=== PATIENT | male | born 1955 | race Caucasian/White ===

== ENCOUNTER 2021-10-16 10:53 | Emergency (ER) | payer MEDICARE, OTHER ==
[~2021-10-16] VITALS: Ht 175 cm; Wt 88.0 kg
[~2021-10-16 10:53] MED LIST: ATR20T PO; KETO10TA77 PO; OXYC-190 PO; OXYC1TAB16 PO
[2021-10-16] MEDS ORDERED: LEVO50TA6 (11:08)
[2021-10-16] MEDS ORDERED: TETANUS,DIPTH,PERTUSS P/F (BOOSTRIX) 0.5 ML VIAL IM ONE (11:15)
--- NOTE | 2021-10-16 11:37 | Diagnostic Imaging Report ---
INDICATION: Chest pain. EXAMINATION: Portable chest at 11:32 a.m. FINDINGS: Heart size and pulmonary vascularity are normal. Lungs are clear. There are no effusions or pneumothoraces. IMPRESSION: No acute abnormalities in the chest. Dictated by: Dictated on workstation # [id number]
--- NOTE | 2021-10-16 11:38 | Diagnostic Imaging Report ---
INDICATION: Right wrist injury 3 views of the right wrist show mildly displaced oblique fractures of the shafts of the 3rd and 4th metacarpals. There is a nondisplaced fracture of the radial styloid. There is a fracture of the dorsal aspect of the triquetrum. IMPRESSION: Multiple fractures in the wrist as noted above. Dictated by: Dictated on workstation # [id number]
--- NOTE | 2021-10-16 11:39 | Diagnostic Imaging Report ---
INDICATION: Right hand injury. FINDINGS: Three views of the right hand show oblique fractures of the shafts of the third and fourth metacarpals with medial displacement of the distal components by the width of the cortex. IMPRESSION: Fractures of the right fourth and fifth metacarpals. Dictated by: Dictated on workstation # [id number]
--- NOTE | 2021-10-16 11:42 | Diagnostic Imaging Report ---
Clinical indication: Patient was on a ladder cutting limbs and thinks limb hit the bottom of the ladder causing him to fall. Patient has positive loss of consciousness for approximately 2 minutes. Exam: Head CT without IV contrast with sagittal and coronal reformations. Axial CT scan of the cervical spine with sagittal and coronal reformations. Auto Exposure Controls were utilized during the CT exam to meet ALARA standards for radiation dose reduction. Comparison: None. Findings: Head CT: There is skull streak artifact which obscures portions of the brainstem, posterior fossa, and portions of the brain near the skull. There is no evidence of acute cerebral infarct, intracranial hemorrhage, or gross mass effect. The brain parenchymal volume appears appropriate for patient's age. There is normal richard-white matter distinction. There is no significant midline shift or herniation. There is no evidence of hydrocephalus. The basal cisterns are unremarkable. The skull, extracranial soft tissue, and orbits are unremarkable. There is mild mucosal thickening involving ethmoid sinus. There is moderate mucosal thickening involving the right maxillary sinus. There is vryd-xg-xnymquxf mucosal thickening involving left maxillary sinus. Temporal bones show no significant abnormality. Cervical spine: There is no acute cervical spine fracture or dislocation. There is chronic appearing mild anterior wedging of the T1 vertebra with no cortical disruption seen. There is cervical spine vertebral body spurs and facet arthropathy. There is severe loss of disk space height with the appearance of the diffuse disk bulge at the C6-C7 level. There is associated moderate bilateral neural foramen narrowing and at least mild central canal stenosis. There is a 1.8 cm heterogeneous hyperdense nodular area involving left thyroid lobe. Remainder of the neck soft tissue structures are unremarkable. Visualized upper lung ledesma are clear. IMPRESSION: 1: There is no evidence of acute intracranial hemorrhage. There is no skull fracture. 2: There is cervical spine degenerative disease with no acute fracture or dislocation. 3: There is a 1.8 cm left thyroid lobe nodule. Nonemergent thyroid ultrasound would better evaluate. Dictated by: Dictated on workstation # [id number]
--- NOTE | 2021-10-16 12:13 | ED Fall/Injury ---
General Chief Complaint: Trauma-Non Activation Stated Complaint: FALL Nursing Triage Note: ARRIVED VIA EMS. STATES HE WAS ON A LADDER CUTTING LIMBS AND THINKS A LIMB HIT THE BOTTOM OF THE LADDER CAUSING HIM TO FALL. +LOC FOR APPX 2 MINS. COMPLAINS OF RIGHT WRIST/HAND AND STERNUM PAIN. Source: patient Exam Limitations: no limitations History of Present Illness Date Seen by Provider: Oct 16, 2021 Allergies and Home Medications Allergies Coded Allergies: No Known Drug Allergies (Unverified , 01/22/10) Patient Home Medication List Atorvastatin (Lipitor 20MG) 20 Mg Tablet, 20 MG PO DAILY, (Reported) Entered as Reported by: ABDELRAHMAN MANUEL on 12/21/13 1648 Hydrocodone/Acetaminophen (Hydrocodone-Acetamin 5-325 mg) 5 Mg-325 Mg Tablet, 1 TAB PO Q4H PRN for PAIN-MODERATE (5-7) Prescribed by: KIRSTIE LOPEZ on 10/16/21 1341 Levothyroxine Sodium (Levothyroxine Sodium) 50 Mcg Tablet, (Reported) Entered as Reported by: PRISCILLA ANDERSON on 10/16/21 1108 Last Action: New Order Past Tcsduud-Dtkmld-Ziylku Hx Patient Social History Tobacco Use?: No Substance use?: No Alcohol Use?: Yes Alcohol Frequency: Once in a while Immunizations Up To Date Tetanus Booster (TDap): Less than 5yrs Past Medical History Reproductive Disorders: No Sexually Transmitted Disease: No HIV/AIDS: No Family Medical History Cataracts 19 MOTHER, Onset:60 years & older FH: lung cancer 19 FATHER, Onset:60 years & older Thyroid disease 19 MOTHER, Onset:60 years & older Heart Disease Physical Exam Vital Signs Vital Signs - First Documented 10/16/21 10:53 Temp 36.3 Pulse 89 Resp 16 B/P (MAP) 152/86 (108) Pulse Ox 99 Capillary Refill : Less Than 3 Seconds Height, Weight, BMI Height: 5'9.00" Weight: 191lbs. 0.0oz. 86.707731sw; 28.00 BMI Method: Progress/Results/Core Measures Results/Orders My Orders Orders - KIRSTIE SULLIVAN MD Ct Head/Cervical Spine Wo (10/16/21 11:06) Chest 1 View, Ap/Pa Only (10/16/21 11:06) Wrist, Right, 3 Views Or More (10/16/21 11:06) Hand, Right, 3 Views (10/16/21 11:06) Dipht,Pertuss(Acell),Tet Adult (Boostrix (10/16/21 11:15) Medications Given in ED Current Medications Medications Dose Ordered Sig/Deirdre Route Start Time Stop Time Status Last Admin Dose Admin Diphtheria/ Tetanus/Acell Pertussis 0.5 ml ONCE ONCE IM 10/16/21 11:15 10/16/21 11:16 DC 10/16/21 11:41 0.5 ML Vital Signs/I&O 10/16/21 10:53 Temp 36.3 Pulse 89 Resp 16 B/P (MAP) 152/86 (108) Pulse Ox 99 Blood Pressure Mean: 108 Departure Impression Primary Impression: Fall from ladder Qualified Codes: W11.XXXA - Fall on and from ladder, initial encounter Additional Impressions: Concussion with brief LOC Fracture of right hand Qualified Codes: S62.91XA - Unspecified fracture of right wrist and hand, initial encounter for closed fracture Fracture of right wrist Qualified Codes: S62.101A - Fracture of unspecified carpal bone, right wrist, initial encounter for closed fracture Thyroid nodule Disposition: HOME, SELF-CARE Condition: Stable Departure-Patient Inst. Decision time for Depature: 13:38 Referrals: OLGA LIDIA GLOVER DO (PCP/Family) Primary Care Physician Patient Instructions: Concussion in Adults, Hand Fracture ED, Thyroid Nodules, Wrist Fracture (DC) Add. Discharge Instructions: Keep your hand and wrist in the splint until you see the orthopedist. Keep the splint clean and dry. Follow-up with an orthopedist of your choice is soon as possible. Elevation on a soft surface and icing in 20-minute intervals may help with pain and swelling. Using the sling for elevation and immobility should be helpful as well. You may use hydrocodone as prescribed for pain. Avoid use of NSAIDs until otherwise instructed by your orthopedist. You may wish to use a stool softener such as Colace while on hydrocodone to prevent constipation. Your loss of consciousness would indicate you have had a concussion. Please observe cognitive rest for the next few days. Avoid any activity that would predispose you to head injury for at least a week. Stop any activity that increases concussion symptoms such as confusion, blurry vision, headache, irritability, nausea, etc. Follow-up with your primary care provider within the next 2 weeks regarding your incidental thyroid nodule seen on CT scan. Follow-up imaging with ultrasound should be obtained by your primary care provider. Call with questions or concerns. Return to the ER if you have worsening symptoms. All discharge instructions reviewed with patient and/or family. Voiced understanding. Scripts Hydrocodone/Acetaminophen (Hydrocodone-Acetamin 5-325 mg) 5 Mg-325 Mg Tablet 1 TAB PO Q4H PRN for PAIN-MODERATE (5-7), #20 TAB Prov: KIRSTIE SULLIVAN MD 10/16/21 Copy Copies To 1: RICK CARTY MD Copies To 2: OLGA LIDIA GLOVER JOSHUA T MD Oct 16, 2021 12:13
[2021-10-16] MEDS ORDERED: ACHD5005 PO (13:41)
[2021-10-16 13:51] VITALS: BP 132/94
== END 2021-10-16 13:51 | disposition home or self-care (01) ==
LOC: EDUNIT# 10:53 → ER 10:55
DX: S06.0X9A Concussion with loss of consciousness of unspecified duration, initial encounter (principal); S52.514A Nondisplaced fracture of right radial styloid process, initial encounter for closed fracture; S62.322A Displaced fracture of shaft of third metacarpal bone, right hand, initial encounter for closed fracture; S62.324A Displaced fracture of shaft of fourth metacarpal bone, right hand, initial encounter for closed fracture; S62.326A Displaced fracture of shaft of fifth metacarpal bone, right hand, initial encounter for closed fracture; E04.1 Nontoxic single thyroid nodule; W11.XXXA Fall on and from ladder, initial encounter
CPT/HCPCS: 29125; 70450; 71045; 72125; 73110; 73130; 90715

== ENCOUNTER → 2021-10-17 | Outpatient (CLI) | payer MEDICARE, OTHER ==
[~2021-10-17] MED LIST changes: +ACHD5005 PO; +LEVO50TA6
--- NOTE | 2021-10-17 15:51 | Diagnostic Imaging Report ---
PROCEDURE: US thyroid. TECHNIQUE: Multiple real-time grayscale images were obtained of the thyroid in various projections. INDICATION: Left thyroid nodule noted on recent CT. FINDINGS: Right lobe of the thyroid measures 4.7 x 1.4 x 1.5 cm and the left lobe measures 4.7 x 1.9 x 1.6 cm. Isthmus is 3 mm in thickness. Both lobes of the thyroid gland are heterogeneous. No discrete mass in the right lobe is identified. There are two nodules in the left lobe, largest mid to lower aspect measuring 1.4 x 0.9 x 1.1 cm. This is mixed solid and cystic and does appear to be wider than it is tall. No microcalcifications are seen. Second nodule is somewhat echogenic, measuring 0.5 x 0.4 x 0.4 cm. IMPRESSION: Left lobe thyroid nodules. These are TI-RADS 3 nodules. Follow-up ultrasound at 1, 3 and 5 years would be recommended to confirm stability. Dictated by: Dictated on workstation # [id number]
== END ==
LOC: RAD 12:45
PROVIDERS: ATTEND Internal Medicine
DX: E04.2 Nontoxic multinodular goiter (principal)
CPT/HCPCS: 76536

== ENCOUNTER → 2022-09-27 | Outpatient (CLI) | payer MEDICARE, OTHER ==
--- NOTE | 2022-09-27 10:31 | Diagnostic Imaging Report ---
PROCEDURE: US Thyroid. TECHNIQUE: Multiple real-time grayscale images were obtained of the thyroid in various projections. INDICATION: Follow-up thyroid nodule. COMPARISON: 10/17/2021. FINDINGS: Both thyroid lobes demonstrate a heterogeneous background echotexture. Color flow Doppler demonstrates increased vascularity bilaterally. The right lobe measures 5.5 cm in length, 2.4 cm AP, and 1.8 cm transverse. The left lobe measures 5.3 cm in length, 2.1 cm AP, and 1.9 cm transverse. The isthmus measures 0.3 cm. A mostly solid nodule is seen in the inferior pole of the left lobe of the thyroid measuring 1.1 x 0.8 x 0.9 cm. Previously this measured 1.4 x 0.9 x 1.1 cm. IMPRESSION: 1. Interval decrease in size in a solid nodule within the inferior pole of the left lobe of the thyroid. Imaging characteristics correspond to a TI RADS 3 nodule. Follow-up in 2 years is recommended. No new suspicious nodules. 2. Enlarged thyroid with heterogeneous echogenicity and increased vascularity throughout. The vascularity has increased since the prior exam. Recommend correlation with patient history and TSH levels and follow-up, as indicated. Dictated by: Dictated on workstation # [id number]
== END ==
LOC: RAD 07:28
PROVIDERS: ATTEND Internal Medicine
DX: E04.1 Nontoxic single thyroid nodule (principal)
CPT/HCPCS: 76536